=== PATIENT | female | born 1985 | race Caucasian/White ===

== ENCOUNTER 2024-12-16 15:08 | Emergency (ER) | payer OTHER ==
[2024-12-16 15:19] VITALS: PULSE 89; RESP 18; TEMP 98.3
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
[2024-12-16 17:17] LABS: Absolute Neutrophil Ct (ANC) 5.56 x10^3/uL (1.56-6.13); BASOPHIL % 0.7 % (0.1-1.2); Basophil (Absolute #) 0.06 x10^3/uL (0.01-0.08); Eosinophil % 2.4 % (0.7-5.8); Hematocrit 41.6 % (34.1-44.9); Hemoglobin 13.3 g/dL (11.2-15.7); IMMATURE GRAN # 0.03 x10^3u/L (0.001-0.031); IMMATURE GRAN % 0.4 % (0.001-0.429); Lymphocyte (Absolute #) 2.18 x10^3/uL (1.18-3.74); Lymphocytes % 25.7 % (19.3-51.7); Mean Cell Volume 83.7 fL (79.4-94.8); Mean Corpuscular Hemoglobin 26.8 pg (25.6-32.2); Mean Platelet Volume 9.5 fL (9.4-12.3); Monocyte (Absolute #) 0.44 x10^3/uL (0.24-0.86); Monocytes % 5.2 % (4.7-12.5); Neutrophil % 65.6 % (34.0-71.1); Platelet Count 340 x10^3/uL (182-369); Red Blood Count 4.97 x10^6/uL (3.93-5.22); White Blood Count 8.5 x10^3/uL (3.98-10.04)
[2024-12-16 17:27] LABS: Appearance Clear (Clear); Bacteria None Seen /HPF (None Seen); Bilirubin Negative (Negative); Blood Small (Negative); Epithelial Cells None Seen /HPF (None Seen); Glucose, Urine >=1000 mg/dL (Negative); Hyaline Casts NONE SEEN /LPF (0-2); Ketones Negative (Negative); Leukocyte Esterase Moderate (Negative); Nitrite Negative (Negative); Protein,Urine Dip 100 (Negative); RBC 0-2 /HPF (0-5); Urobilinogen 0.2 mg/dL (0.2); WBC >100 /HPF (0-5)
[2024-12-16] MEDS ORDERED: MORPHINE SULFATE 2 MG INJ ONE (17:27)
[2024-12-16] MEDS ORDERED: Zofran 4 MG/2 ML VIAL ONE (17:27)
[2024-12-16] MEDS: MORPHINE SULFATE 2 MG INJ IV ONE (17:30)
[2024-12-16] MEDS: Zofran 4 MG/2 ML VIAL IV ONE (17:30)
[2024-12-16 17:37] LABS: ALBUMIN 4.3 g/dL (3.5-5.0); ANION GAP 15.9 MEQ/L (5-15); BILIRUBIN,TOTAL 0.5 mg/dL (0.2-1.3); Calcium 9.8 mg/dL (8.4-10.2); Creatinine 1 1.29 mg/dL (0.52-1.04); EST GLOMERULAR FILTRATION RATE 53.5 ML/MIN; MAGNESIUM 1.7 mg/dL (1.6-2.3); Total Protein 7.6 g/dL (6.3-8.2)
[2024-12-16 18:18] VITALS: O2SAT 99
[2024-12-16 18:25] VITALS: BP 174/104
[2024-12-16] MEDS ORDERED: ROCEPHIN 1 GM / 100 ML NaCl 1 GM/100 ML IVPB IV ONE (18:25)
[2024-12-16] MEDS: ROCEPHIN 1 GM / 100 ML NaCl 1 GM/100 ML IVPB IV ONE (18:27)
== END 2024-12-16 19:27 | disposition home or self-care (01) ==
LOC: ED 15:08
DX: S16.1XXA Strain of muscle, fascia and tendon at neck level, initial encounter (principal); V53.6XXA Passenger in pick-up truck or van injured in collision with car, pick-up truck or van in traffic accident, initial encounter; N39.0 Urinary tract infection, site not specified; R10.12 Left upper quadrant pain; R51.9 Headache, unspecified; I10 Essential (primary) hypertension; E11.9 Type 2 diabetes mellitus without complications; Z79.899 Other long term (current) drug therapy
CPT/HCPCS: 36415; 70450; 72125; 74176; 80053; 81001; 82150; 83690; 83735; 85025; 87086; 96374; 96375; 99285; J0696; J2270; J2405; L0120